=== PATIENT | male | born 1955 | race Caucasian/White ===

== ENCOUNTER 2016-08-19 18:48 | Emergency (ER) | payer BC ==
[~2016-08-19] VITALS: Ht 180.3 cm; Wt 123.0 kg
[2016-08-19] MEDS ORDERED: PRAV20TA2 PO (19:07)
[2016-08-19] MEDS ORDERED: BISO5TAB2 PO (19:07)
[2016-08-19] MEDS ORDERED: LISI40TAB PO (19:07)
[2016-08-19] MEDS ORDERED: NEXI40CA PO (19:07)
--- NOTE | 2016-08-19 20:10 | ECGEPIP ---
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
[2016-08-19 20:24] LABS: BASO % 0.8 % (0.0-1.0); EOS # 0.1 K/mm3 (0.0-0.50); LARGE UNSTAINED CELL # 0.1 K/mm3 (0.0-0.4); LARGE UNSTAINED CELL % 1.8 % (0.0-4.0); LYMPH # 2.2 K/mm3 (1.5-4.5); LYMPH % 32.2 % (24.0-44.0); MEAN CORPUSCULAR HEMOGLOBIN 30.5 pg (27.0-33.0); MEAN CORPUSCULAR HGB CONC 33.8 g/dl (32.0-36.5); MEAN CORPUSCULAR VOLUME 90.3 fl (80.0-96.0); MONO # 0.3 K/mm3 (0.0-0.8); MONO % 4.3 % (0.0-5.0); NEUTROPHILS % 58.9 % (36.0-66.0); PLATELET COUNT, AUTOMATED 170 k/mm3 (150-450); RED CELL DISTRIBUTION WIDTH 12.9 % (11.5-14.5); WHITE BLOOD COUNT 6.8 K/mm3 (4.0-10.0)
[2016-08-19 20:39] LABS: ANION GAP 6 MEQ/L (8-16); BLOOD UREA NITROGEN 19 MG/DL (7-18); CALCIUM LEVEL 8.7 MG/DL (8.8-10.2); CARBON DIOXIDE LEVEL 29 MEQ/L (21-32); CHLORIDE LEVEL 105 MEQ/L (98-107); CREATININE FOR GFR 0.87 MG/DL (0.70-1.30); GLOMERULAR FILTRATION RATE > 60.0 (>49); GLUCOSE, FASTING 173 MG/DL (80-110); POTASSIUM SERUM 3.7 MEQ/L (3.5-5.1); SODIUM LEVEL 140 MEQ/L (136-145)
[2016-08-19] MEDS ORDERED: NS 500 ML IV ONE (22:15)
--- NOTE | 2016-08-19 22:48 | REP ---
Clinical: Chest pain . Comparison: 10/22/2014 . Technique: PA and lateral. Findings: The mediastinum and cardiac silhouette are normal. The lung gregg are clear and without acute consolidation, effusion, or pneumothorax. The skeletal structures are intact and normal. Impression: 1. No acute cardiopulmonary process. Signed by Clifford Londono MD 08/19/2016 10:39 P
[2016-08-20] MEDS ORDERED: METF500T13 PO (03:57)
[2016-08-20 04:12] VITALS: BP 109/60
--- NOTE | 2016-08-21 07:26 | ECGEPIP ---
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
== END 2016-08-20 04:21 | disposition home or self-care (01) ==
LOC: M ED 20:01
DX: R07.89 Other chest pain (principal); E11.9 Type 2 diabetes mellitus without complications

== ENCOUNTER 2016-08-22 13:00 | Emergency (ER) | payer BC ==
[~2016-08-22] VITALS: Ht 180.3 cm; Wt 122.1 kg
[~2016-08-22 13:00] MED LIST: BISO5TAB2 PO; LISI40TAB PO; METF500T13 PO; NEXI40CA PO; PRAV20TA2 PO
[2016-08-22] MEDS ORDERED: ISOVUE-370 76% 100ML VIAL (Q9967) As Ordered ONE (14:32)
--- NOTE | 2016-08-22 15:27 | REP ---
Clinical: Chest pain. Shortness of breath. Technique: Axial contrast enhanced images from the thoracic inlet to the upper abdomen using 100 ml Isovue 370 intravenous contrast material with multiplanar re-formations. Findings: Satisfactory enhancement of the pulmonary vasculature is achieved and no filling defects are identified to suggest pulmonary embolus. 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 The heart and associated major vessels are otherwise normal. The lung gregg are clear. Trace fibroatelectatic changes to the lingula noted. Tracheobronchial tree is normal. No adenopathy. Surrounding musculoskeletal structures are intact. Impression: 1. No evidence for pulmonary embolus. 2. No acute mediastinal or pleuroparenchymal process. 3. Congenital PAPVC. Signed by Clifford Londono MD 08/22/2016 03:19 P
[2016-08-22 15:52] VITALS: BP 121/76
--- NOTE | 2016-08-23 07:32 | ECGEPIP ---
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
== END 2016-08-22 15:56 | disposition home or self-care (01) ==
LOC: M ED 13:00
DX: R07.89 Other chest pain (principal); E11.9 Type 2 diabetes mellitus without complications; I10 Essential (primary) hypertension; E78.4 Other hyperlipidemia
CPT/HCPCS: 71275; 82550; 82553; 93005; 99284; Q9967

== ENCOUNTER 2016-10-26 08:21 | Emergency (ER) | payer BC ==
[~2016-10-26] VITALS: Ht 180.3 cm; Wt 121.8 kg
[2016-10-26 08:33] VITALS: BP 139/79
[2016-10-26] MEDS ORDERED: ONDANSETRON 4 MG ORAL DISINTEGRATING TAB (S0181) PO ONE (09:15)
--- NOTE | 2016-10-26 09:17 | REP ---
Clinical: the headache and dizziness . Comparison: None . Findings: The ventricles, sulci, and cisterns are normal in position and appearance. [place]-white differentiation is maintained. No acute intracranial hemorrhage, mass/mass effect, pathology or trauma/injury. No evidence for acute infarction. No extra-axial fluid collection. Calvarium is intact. Paranasal sinuses and mastoid air cells are clear. Impression: Normal noncontrast head CT. No evidence for acute intracranial pathology or trauma/injury. Signed by Clifford Londono MD 10/26/2016 09:09 A
[2016-10-26] MEDS ORDERED: ZOFR4TAB3 PO (09:47)
[2016-10-26] MEDS ORDERED: MECL-86 PO (09:47)
[2016-10-26] MEDS ORDERED: FLON1SPR (09:47)
== END 2016-10-26 09:56 | disposition home or self-care (01) ==
LOC: M ED 08:21
DX: H81.399 Other peripheral vertigo, unspecified ear (principal); H65.192 Other acute nonsuppurative otitis media, left ear

== ENCOUNTER 2017-09-18 10:39 | Day surgery (SDC) | payer BC ==
[2017-09-18] MEDS: NS 1,000 ML IV (10:45)
[2017-09-18] MEDS ORDERED: PROPOFOL 200 MG/20 ML VIAL As Ordered (12:01)
[2017-09-18] MEDS ORDERED: LIDOCAINE 2% INJ 100 MG/5 ML SDV (FOR ANES.) As Ordered (12:01)
== END 2017-09-18 12:40 | disposition home or self-care (01) ==
LOC: M OPP 10:39
DX: Z12.11 Encounter for screening for malignant neoplasm of colon (principal); D12.3 Benign neoplasm of transverse colon; K57.30 Diverticulosis of large intestine without perforation or abscess without bleeding; Z86.010 Personal history of colon polyps; Z79.84 Long term (current) use of oral hypoglycemic drugs; Z79.899 Other long term (current) drug therapy; E78.00 Pure hypercholesterolemia, unspecified; E11.9 Type 2 diabetes mellitus without complications
CPT/HCPCS: 45385

== ENCOUNTER → 2018-06-06 | Outpatient (CLI) | payer BC ==
[~2018-06-06] MED LIST changes: +FLON1SPR; +LISI40TA PO; -LISI40TAB PO; +MECL-86 PO; +VITA200015 PO; +ZOFR4TAB14 PO
--- NOTE | 2018-06-06 10:29 | REP ---
Right hip: Two views. History: Right hip pain. Findings: AP and frog-leg views of the right hip demonstrate inferior acetabular osteoarthritic spurring. Femoral head is smooth and rounded. Hip joint spaces preserved. There is tendon insertion site spurring on the greater trochanter and on the iliac crest and ischium consistent with enthesopathy. Osteoarthritis is seen at the lower lumbar spine facets. Impression: Osteoarthritic changes and tendon insertion site spurring at multiple sites. No acute bony abnormality. Electronically Signed by Tahir Paredes MD 06/06/2018 02:27 P
== END ==
LOC: M WUC 09:40
PROVIDERS: ATTEND Physician Assistant
DX: M25.551 Pain in right hip (principal); M16.11 Unilateral primary osteoarthritis, right hip; M76.21 Iliac crest spur, right hip; M47.816 Spondylosis without myelopathy or radiculopathy, lumbar region

== ENCOUNTER 2019-02-08 16:17 | Emergency (ER) | payer BC ==
[~2019-02-08] VITALS: Ht 180.3 cm; Wt 122.3 kg
[2019-02-08] MEDS ORDERED: METOCLOPRAMIDE 10 MG TAB PO ONE (17:30)
[2019-02-08] MEDS ORDERED: IBUPROFEN 600 MG TAB PO ONE (17:30)
--- NOTE | 2019-02-08 17:49 | REPVR ---
PROCEDURE INFORMATION: Exam: CT Head Without Contrast Exam date and time: 02/08/2019 5:45 PM Age: 63 years old Clinical history: Pain; Headache; Additional info: R orbital SANCHEZ, new sudden onset TECHNIQUE: Imaging protocol: Computed tomography of the head without contrast. Radiation optimization: All CT scans at this facility use at least one of these dose optimization techniques: automated exposure control; mA and/or kV adjustment per patient size (includes targeted exams where dose is matched to clinical indication); or iterative reconstruction. COMPARISON: CT Head without contrast 10/26/2016 8:57 AM FINDINGS: Brain: There is no evidence of infarct, mcintyre-white matter differentiation is preserved. There is no hemorrhage or extra-axial collection. There is no mass. No evidence of subarachnoid hemorrhage. Ventricles: There is no hydrocephalus. Bones/joints: Unremarkable. No acute fracture. Sinuses: Visualized sinuses are unremarkable. No fluid levels. Mastoid air cells: There is fluid within the mastoid air cells bilaterally also present on the prior scan. Orbits: No evidence of intraorbital abnormality. Soft tissues: Unremarkable. IMPRESSION: No intracranial lesion or injury and no change from prior scan. Electronically signed by: Mason Joy On 02/08/2019 17:49:37 PM
[2019-02-08 18:17] LABS: BASO % 0.2 % (0.0-1.0); EOS # 0.2 10^3/uL (0.0-0.5); EOS % 1.8 % (0.0-3.0); HEMATOCRIT 45.2 % (42.0-52.0); HEMOGLOBIN 15.1 g/dl (13.5-17.5); LYMPH % 37.3 % (24.0-44.0); MEAN CORPUSCULAR HEMOGLOBIN 29.8 pg (27.0-33.0); MEAN CORPUSCULAR HGB CONC 33.4 g/dl (32.0-36.5); MEAN CORPUSCULAR VOLUME 89.3 fl (80.0-96.0); MONO # 0.5 10^3/uL (0.0-0.8); NEUTROPHILS # 4.4 10^3/uL (1.5-8.5); NEUTROPHILS % 54.5 % (36.0-66.0); PLATELET COUNT, AUTOMATED 186 10^3/uL (150-450); RED BLOOD COUNT 5.06 10^6/uL (4.30-6.10); WHITE BLOOD COUNT 8.2 10^3/uL (4.0-10.0)
[2019-02-08 18:32] VITALS: BP 118/67
== END 2019-02-08 18:33 | disposition home or self-care (01) ==
LOC: M ED 16:17
DX: G44.009 Cluster headache syndrome, unspecified, not intractable (principal); E11.9 Type 2 diabetes mellitus without complications; I10 Essential (primary) hypertension; E78.5 Hyperlipidemia, unspecified; G47.33 Obstructive sleep apnea (adult) (pediatric); Z79.899 Other long term (current) drug therapy; Z79.84 Long term (current) use of oral hypoglycemic drugs

== ENCOUNTER 2021-08-14 19:17 | Emergency (ER) | payer BC, MEDICARE ==
[~2021-08-14] VITALS: Ht 180.3 cm; Wt 115.2 kg
[~2021-08-14 19:17] MED LIST changes: +BISO1TAB18 PO; -BISO5TAB2 PO; -LISI40TA PO; +LISI40TA4 PO
[2021-08-14] MEDS ORDERED: ASPIRIN 81 MG CHEW TABLET PO ONE (19:40)
[2021-08-14] MEDS ORDERED: FARX1TAB3 PO (19:51)
[2021-08-14 19:58] LABS: BASO % 0.2 % (0.0-1.0); EOS # 0.1 10^3/uL (0.0-0.5); EOS % 1.7 % (0.0-3.0); HEMATOCRIT 46.1 % (42.0-52.0); HEMOGLOBIN 15.9 g/dl (13.5-17.5); LYMPH # 2.6 10^3/uL (1.5-5.0); LYMPH % 31.8 % (24.0-44.0); MEAN CORPUSCULAR HEMOGLOBIN 30.3 pg (27.0-33.0); MEAN CORPUSCULAR HGB CONC 34.5 g/dl (32.0-36.5); MEAN CORPUSCULAR VOLUME 87.8 fl (80.0-96.0); MONO # 0.5 10^3/uL (0.0-0.8); MONO % 6.6 % (2.0-8.0); NEUTROPHILS # 4.7 10^3/uL (1.5-8.5); NEUTROPHILS % 59.1 % (36.0-66.0); PLATELET COUNT, AUTOMATED 175 10^3/uL (150-450); RED BLOOD COUNT 5.25 10^6/uL (4.30-6.10)
[2021-08-14 20:24] LABS: CK-MB VALUE MASS 2.3 NG/ML (<3.6); MB/CK RELATIVE INDEX 2.07 (< OR =4)
[2021-08-14 20:36] LABS: ALBUMIN 3.5 GM/DL (3.2-5.2); ALT/SGPT 48 U/L (12-78); BILIRUBIN,DIRECT 0.1 MG/DL (0.0-0.2); BILIRUBIN,TOTAL 0.5 MG/DL (0.2-1.0); BLOOD UREA NITROGEN 21 MG/DL (7-18); CALCIUM LEVEL 8.4 MG/DL (8.8-10.2); CARBON DIOXIDE LEVEL 23 MEQ/L (21-32); CHLORIDE LEVEL 104 MEQ/L (98-107); CREATININE FOR GFR 1.11 MG/DL (0.70-1.30); FREE T4 0.94 NG/DL (0.76-1.46); GLOMERULAR FILTRATION RATE > 60.0 (>49); GLUCOSE, FASTING 164 MG/DL (70-100); LIPASE 144 U/L (73-393); NT-PRO BNP 86 PG/ML (<125); POTASSIUM SERUM 4.6 MEQ/L (3.5-5.1); SODIUM LEVEL 138 MEQ/L (136-145); TOTAL PROTEIN 6.8 GM/DL (6.4-8.2)
[2021-08-14] MEDS ORDERED: ISOVUE-370 76% 100ML VIAL As Ordered ONE (20:48)
[2021-08-14 21:02] LABS: CK-MB VALUE MASS 2.1 NG/ML (<3.6); MB/CK RELATIVE INDEX 1.96 (< OR =4)
[2021-08-14 22:15] VITALS: BP 103/59
== END 2021-08-14 22:46 | disposition home or self-care (01) ==
LOC: M ED 19:17
DX: K21.00 Gastro-esophageal reflux disease with esophagitis, without bleeding (principal); E11.9 Type 2 diabetes mellitus without complications; I10 Essential (primary) hypertension; E78.5 Hyperlipidemia, unspecified; Z87.19 Personal history of other diseases of the digestive system; Z79.899 Other long term (current) drug therapy; Z79.84 Long term (current) use of oral hypoglycemic drugs
CPT/HCPCS: 36415; 71045; 71275; 80048; 80076; 82550; 82553; 83690; 83880; 84439; 84443; 84484; 85025; 93005; 93041; 94760; 99285; Q9967

== ENCOUNTER → 2021-09-15 | Outpatient (REF) | payer MEDICARE, BC ==
[~2021-09-15] MED LIST changes: +FARX1TAB3 PO
== END ==
LOC: M LAB REF 12:15
PROVIDERS: ATTEND Physician Assistant Medical
DX: J01.10 Acute frontal sinusitis, unspecified (principal)

== ENCOUNTER 2022-08-03 09:45 | Emergency (ER) | payer MEDICARE, BC ==
[~2022-08-03] VITALS: Ht 180.3 cm; Wt 112.7 kg
[2022-08-03] MEDS ORDERED: PRAV40TA2 (10:09)
[2022-08-03] MEDS ORDERED: OLME40TA (10:09)
[2022-08-03 11:37] VITALS: BP 115/66; TEMP 97; O2SAT 97
== END 2022-08-03 11:44 | disposition home or self-care (01) ==
LOC: M ED 09:45
DX: N50.811 Right testicular pain (principal); E11.9 Type 2 diabetes mellitus without complications; G47.33 Obstructive sleep apnea (adult) (pediatric); I10 Essential (primary) hypertension; E78.5 Hyperlipidemia, unspecified; Z88.8 Allergy status to other drugs, medicaments and biological substances; Z79.899 Other long term (current) drug therapy; Z79.84 Long term (current) use of oral hypoglycemic drugs

== ENCOUNTER → 2022-08-15 | Outpatient (CLI) | payer MEDICARE, BC ==
[~2022-08-15] MED LIST changes: +OLME40TA; +PRAV40TA2; +PROHANCE 279.3MG/ML 15ML VIAL As Ordered ONE; +PROHANCE 279.3MG/ML 5ML VIAL As Ordered ONE
== END ==
LOC: M RAD 15:55
PROVIDERS: ATTEND Otolaryngology
DX: H90.A21 Sensorineural hearing loss, unilateral, right ear, with restricted hearing on the contralateral side (principal); H93.12 Tinnitus, left ear; I67.82 Cerebral ischemia; G31.9 Degenerative disease of nervous system, unspecified; H70.93 Unspecified mastoiditis, bilateral
CPT/HCPCS: 70553; A9576

== ENCOUNTER 2022-09-16 08:13 | Day surgery (SDC) | payer MEDICARE, BC ==
[~2022-09-16] VITALS: Ht 180.3 cm; Wt 111.5 kg
[~2022-09-16 08:13] MED LIST changes: +CIPRODEX OTIC SUSP 7.5ML As Ordered ONE; +ECOT81TA5 PO; -PROHANCE 279.3MG/ML 15ML VIAL As Ordered ONE; -PROHANCE 279.3MG/ML 5ML VIAL As Ordered ONE; +VITA100093 PO
[2022-09-16] MEDS ORDERED: LR 1,000 ML IV SCH ×2 (09:15→11:05)
[2022-09-16] MEDS ORDERED: ONDANSETRON 4MG 2ML VIAL As Ordered ONE (10:11)
[2022-09-16] MEDS ORDERED: propofoL 200 MG/20 ML VIAL As Ordered ONE (10:11)
[2022-09-16] MEDS ORDERED: LIDOCAINE 2% 100MG/5ML SDV (FOR ANES.) As Ordered ONE (10:11)
[2022-09-16] MEDS ORDERED: fentaNYL 100 MCG/2 ML INJECTION As Ordered ONE (10:13)
[2022-09-16] MEDS ORDERED: MIDAZOLAM INJ 2MG/2ML VIAL As Ordered ONE (10:14)
[2022-09-16] MEDS ORDERED: CIPRODEX OTIC SUSP 7.5ML As Ordered ONE (10:32)
[2022-09-16] MEDS ORDERED: ACETAMINOPHEN 1000MG 100ML IV BAG As Ordered ONE (10:50)
[2022-09-16] MEDS ORDERED: fentaNYL 100 MCG/2 ML INJECTION IV PRN (11:05)
[2022-09-16] MEDS ORDERED: HYDROMORPHONE HCL 0.5 MG/ 0.5 ML SYRINGE IV PRN (11:05)
[2022-09-16] MEDS ORDERED: oxyCODONE 5MG TAB PO PRN (11:05)
[2022-09-16] MEDS ORDERED: ONDANSETRON 4MG 2ML VIAL IV PRN (11:05)
[2022-09-16 12:28] VITALS: BP 124/70; TEMP 97.3; O2SAT 95
== END 2022-09-16 12:45 | disposition home or self-care (01) ==
LOC: M SDC 08:13
PROVIDERS: ATTEND Otolaryngology
DX: H70.13 Chronic mastoiditis, bilateral (principal); H90.6 Mixed conductive and sensorineural hearing loss, bilateral; I10 Essential (primary) hypertension; E78.5 Hyperlipidemia, unspecified; E11.9 Type 2 diabetes mellitus without complications; K57.92 Diverticulitis of intestine, part unspecified, without perforation or abscess without bleeding; G47.30 Sleep apnea, unspecified; Z88.8 Allergy status to other drugs, medicaments and biological substances; Z79.899 Other long term (current) drug therapy; Z79.84 Long term (current) use of oral hypoglycemic drugs
CPT/HCPCS: 69436; J0131; J1100; J2250; J2405; J3010

== ENCOUNTER 2023-03-28 07:59 | Emergency (ER) | payer MEDICARE, BC ==
[~2023-03-28] VITALS: Ht 180.3 cm; Wt 112.9 kg
[~2023-03-28 07:59] MED LIST changes: -CIPRODEX OTIC SUSP 7.5ML As Ordered ONE; -OLME40TA; +OLME40TA PO; -PRAV40TA2; +PRAV40TA2 PO
[2023-03-28 11:39] LABS: BASO % 0.4 % (0.0-1.0); EOS # 0.1 10^3/uL (0.0-0.5); EOS % 1.5 % (0.0-3.0); HEMATOCRIT 46.1 % (42.0-52.0); HEMOGLOBIN 15.6 g/dl (13.5-17.5); LYMPH # 1.8 10^3/uL (1.5-5.0); LYMPH % 34.7 % (24.0-44.0); MEAN CORPUSCULAR HEMOGLOBIN 30.1 pg (27.0-33.0); MEAN CORPUSCULAR HGB CONC 33.8 g/dl (32.0-36.5); MEAN CORPUSCULAR VOLUME 88.8 fl (80.0-96.0); MONO # 0.4 10^3/uL (0.0-0.8); MONO % 6.6 % (2.0-8.0); NEUTROPHILS % 56.4 % (36.0-66.0); PLATELET COUNT, AUTOMATED 146 10^3/uL (150-450); RED BLOOD COUNT 5.19 10^6/uL (4.30-6.10); WHITE BLOOD COUNT 5.3 10^3/uL (4.0-10.0)
[2023-03-28 12:07] LABS: LIPASE 31 U/L (12-53)
[2023-03-28 12:09] LABS: ALBUMIN 3.7 G/DL (3.2-5.2); ALKALINE PHOSPHATASE 64 U/L (46-116); ALT/SGPT 51 U/L (7.0-40); AST/SGOT 32 U/L (<34); BILIRUBIN,DIRECT 0.2 MG/DL (<0.4); BILIRUBIN,TOTAL 0.6 MG/DL (0.3-1.2); BLOOD UREA NITROGEN 11 MG/DL (9-23); CALCIUM LEVEL 8.5 MG/DL (8.3-10.6); CARBON DIOXIDE LEVEL 26 MMOL/L (20-31); CHLORIDE LEVEL 107 MMOL/L (98-107); CREATININE FOR GFR 0.62 MG/DL (0.70-1.30); GLOMERULAR FILTRATION RATE > 60.0 (>49); GLUCOSE, FASTING 124 MG/DL (74-106); POTASSIUM SERUM 4.2 MMOL/L (3.5-5.1); SODIUM LEVEL 141 MMOL/L (136-145); TOTAL PROTEIN 6.7 G/DL (5.7-8.2)
[2023-03-28] MEDS ORDERED: ISOVUE-370 76% 100ML VIAL As Ordered ONE (12:14)
[2023-03-28] MEDS ORDERED: FLUT15.820 (13:26)
[2023-03-28] MEDS ORDERED: HOME MED LIST COMPLETE! XX SCH (13:35)
[2023-03-28 13:40] VITALS: BP 154/72; TEMP 97.6; O2SAT 100
== END 2023-03-28 14:13 | disposition home or self-care (01) ==
LOC: M ED 07:59
DX: D69.6 Thrombocytopenia, unspecified (principal); E11.9 Type 2 diabetes mellitus without complications; E78.5 Hyperlipidemia, unspecified; I10 Essential (primary) hypertension; K21.9 Gastro-esophageal reflux disease without esophagitis; R42 Dizziness and giddiness; G47.33 Obstructive sleep apnea (adult) (pediatric); Z79.82 Long term (current) use of aspirin; Z79.899 Other long term (current) drug therapy
CPT/HCPCS: 36415; 74177; 80048; 80076; 81001; 83605; 83690; 85025; 99284; Q9967

== ENCOUNTER 2023-04-24 11:54 | Day surgery (SDC) | payer MEDICARE, BC ==
[~2023-04-24] VITALS: Ht 180.3 cm; Wt 111.1 kg
[~2023-04-24 11:54] MED LIST changes: +FLUT15.820
[2023-04-24] MEDS: NS 1,000 ML IV ONE (12:06)
[2023-04-24] MEDS ORDERED: propofoL 500 MG/50 ML VIAL As Ordered ONE (13:57)
[2023-04-24 14:01] VITALS: TEMP 99
[2023-04-24 14:16] VITALS: BP 122/67; O2SAT 96
== END 2023-04-24 14:29 | disposition home or self-care (01) ==
LOC: M OPP 11:54
PROVIDERS: ATTEND Surgery
DX: Z12.11 Encounter for screening for malignant neoplasm of colon (principal); D12.5 Benign neoplasm of sigmoid colon; D12.2 Benign neoplasm of ascending colon; D12.0 Benign neoplasm of cecum; Z86.010 Personal history of colon polyps; K21.9 Gastro-esophageal reflux disease without esophagitis; Z87.19 Personal history of other diseases of the digestive system; E11.9 Type 2 diabetes mellitus without complications; I10 Essential (primary) hypertension; E78.00 Pure hypercholesterolemia, unspecified; K76.0 Fatty (change of) liver, not elsewhere classified; G47.30 Sleep apnea, unspecified; Z79.84 Long term (current) use of oral hypoglycemic drugs; Z79.899 Other long term (current) drug therapy; Z79.82 Long term (current) use of aspirin; Z88.8 Allergy status to other drugs, medicaments and biological substances

== ENCOUNTER 2023-12-07 06:37 | Emergency (ER) | payer MEDICARE, BC ==
[~2023-12-07] VITALS: Ht 180.3 cm; Wt 109.7 kg
[2023-12-07 07:56] LABS: BASO % 0.4 % (0.0-1.0); EOS # 0.2 10^3/uL (0.0-0.5); EOS % 2.8 % (0.0-3.0); HEMATOCRIT 46.4 % (42.0-52.0); HEMOGLOBIN 16.1 g/dl (13.5-17.5); LYMPH # 1.7 10^3/uL (1.5-5.0); LYMPH % 32.6 % (24.0-44.0); MEAN CORPUSCULAR HEMOGLOBIN 30.7 pg (27.0-33.0); MEAN CORPUSCULAR HGB CONC 34.7 g/dl (32.0-36.5); MEAN CORPUSCULAR VOLUME 88.5 fl (80.0-96.0); MONO # 0.4 10^3/uL (0.0-0.8); NEUTROPHILS % 56.8 % (36.0-66.0); PLATELET COUNT, AUTOMATED 154 10^3/uL (150-450); RED BLOOD COUNT 5.24 10^6/uL (4.30-6.10); WHITE BLOOD COUNT 5.3 10^3/uL (4.0-10.0)
[2023-12-07 08:00] LABS: APPEARANCE, URINE CLEAR (CLEAR); BACTERIA, URINE AUTO NEGATIVE (NEGATIVE); BILIRUBIN, URINE AUTO NEGATIVE (NEGATIVE); BLOOD, URINE BLOOD NEGATIVE (NEGATIVE); COLOR, URINE YELLOW (YELLOW); GLUCOSE, URINE (UA) AUTO 3+ mg/dL (NEGATIVE); KETONE, URINE AUTO NEGATIVE (NEGATIVE); LEUKOCYTE ESTERASE, URINE AUTO NEGATIVE (NEGATIVE); MUCUS, URINE SMALL (NEGATIVE); NITRITE, URINE AUTO NEGATIVE (NEGATIVE); PROTEIN, URINE AUTO NEGATIVE (NEGATIVE); RBC, URINE AUTO 0 /HPF (0-3); SPECIFIC GRAVITY URINE AUTO 1.023 (1.002-1.035); SQUAMOUS EPITHELIAL CELL UR AU 0 /HPF (0-6); UROBILINOGEN, URINE AUTO 0.2 mg/dL (0.0-2.0); WBC, URINE AUTO 0 /HPF (0-3)
[2023-12-07 08:29] LABS: ALBUMIN 3.7 G/DL (3.2-5.2); BILIRUBIN,DIRECT 0.3 MG/DL (<0.4); BILIRUBIN,TOTAL 0.7 MG/DL (0.3-1.2); TOTAL PROTEIN 6.7 G/DL (5.7-8.2)
[2023-12-07] MEDS ORDERED: ISOVUE-370 76% 100ML VIAL As Ordered ONE (08:32)
[2023-12-07 09:33] VITALS: BP 117/65; TEMP 97.3; O2SAT 96
== END 2023-12-07 10:19 | disposition home or self-care (01) ==
LOC: M ED 06:37
DX: R19.7 Diarrhea, unspecified (principal); M25.552 Pain in left hip; E11.9 Type 2 diabetes mellitus without complications; I10 Essential (primary) hypertension; Z88.8 Allergy status to other drugs, medicaments and biological substances; Z79.1 Long term (current) use of non-steroidal anti-inflammatories (NSAID); Z79.84 Long term (current) use of oral hypoglycemic drugs; Z79.899 Other long term (current) drug therapy
CPT/HCPCS: 36415; 71045; 73502; 74177; 80047; 80076; 81001; 83690; 85025; 99284; Q9967

== ENCOUNTER 2024-05-31 18:01 | Emergency (ER) | payer MEDICARE, BC ==
[2024-05-31 18:36] LABS: BASO % 0.4 % (0.0-1.0); EOS # 0.1 10^3/uL (0.0-0.5); HEMATOCRIT 42.5 % (42.0-52.0); LYMPH # 2.1 10^3/uL (1.5-5.0); LYMPH % 39.2 % (24.0-44.0); MEAN CORPUSCULAR HEMOGLOBIN 30.6 pg (27.0-33.0); MEAN CORPUSCULAR HGB CONC 35.3 g/dl (32.0-36.5); MEAN CORPUSCULAR VOLUME 86.7 fl (80.0-96.0); MONO # 0.4 10^3/uL (0.0-0.8); MONO % 6.5 % (2.0-8.0); NEUTROPHILS # 2.8 10^3/uL (1.5-8.5); NEUTROPHILS % 51.7 % (36.0-66.0); PLATELET COUNT, AUTOMATED 183 10^3/uL (150-450); WHITE BLOOD COUNT 5.4 10^3/uL (4.0-10.0)
[2024-05-31 18:52] LABS: INR 1.08; PROTHROMBIN TIME 14.3 SECONDS (12.5-14.5)
[2024-05-31 19:13] LABS: CK-MB VALUE MASS < 1.0 NG/ML (<3.6); LIPASE 63 U/L (12-53)
[2024-05-31 19:15] LABS: ALBUMIN 3.4 G/DL (3.2-5.2); ALKALINE PHOSPHATASE 69 U/L (40-129); ALT/SGPT 43 U/L (7.0-40); AST/SGOT 20 U/L (<34); BILIRUBIN,DIRECT 0.2 MG/DL (<0.4); BILIRUBIN,TOTAL 0.5 MG/DL (0.3-1.2); TOTAL PROTEIN 6.1 G/DL (5.7-8.2)
[2024-05-31 19:16] LABS: CPK CREATINE PHOSPHOKINASE 81 U/L (46-171); MB/CK RELATIVE INDEX 1.23 (< OR =4)
[2024-05-31] MEDS ORDERED: ISOVUE-370 76% 100ML VIAL As Ordered ONE (19:38)
[2024-05-31 20:05] LABS: BLOOD UREA NITROGEN 13 MG/DL (9-23); CALCIUM LEVEL 8.3 MG/DL (8.3-10.6); CARBON DIOXIDE LEVEL 23 MMOL/L (20-31); CHLORIDE LEVEL 108 MMOL/L (98-107); CREATININE FOR GFR 0.68 MG/DL (0.70-1.30); GLOMERULAR FILTRATION RATE > 60.0 (>49); GLUCOSE, FASTING 182 MG/DL (74-106); POTASSIUM SERUM 3.6 MMOL/L (3.5-5.1); SODIUM LEVEL 145 MMOL/L (136-145)
[2024-05-31 21:48] VITALS: BP 120/63; TEMP 98.6; O2SAT 94
== END 2024-05-31 21:54 | disposition home or self-care (01) ==
LOC: M ED 18:01
DX: R07.9 Chest pain, unspecified (principal); R05.9 Cough, unspecified; E11.9 Type 2 diabetes mellitus without complications; K21.9 Gastro-esophageal reflux disease without esophagitis; E78.5 Hyperlipidemia, unspecified; I10 Essential (primary) hypertension; Z88.8 Allergy status to other drugs, medicaments and biological substances; Z79.899 Other long term (current) drug therapy; Z79.84 Long term (current) use of oral hypoglycemic drugs
CPT/HCPCS: 36415; 71045; 71275; 80047; 80048; 80076; 82550; 82553; 83690; 84484; 85025; 85610; 87486; 87581; 87633; 87798; 93005; 93041; 94760; 99285; Q9967

== ENCOUNTER → 2024-11-10 | Outpatient (CLI) | payer MEDICARE, BC ==
[~2024-11-10] MED LIST changes: +LISI40TA10 PO; -LISI40TA4 PO; -PRAV20TA2 PO; +PRAV20TA78 PO; -PRAV40TA2 PO; +PRAV40TA85 PO
== END ==
LOC: M PLAIMG 13:35
PROVIDERS: ATTEND Physician Assistant
DX: M25.551 Pain in right hip (principal); M16.11 Unilateral primary osteoarthritis, right hip